=== PATIENT | male | born 1960 | race Two or more races ===

== ENCOUNTER 2022-08-16 06:14 | Day surgery (SDC) | payer OTHER ==
[~2022-08-16] VITALS: Ht 172.7 cm; Wt 73.5 kg
[~2022-08-16 06:14] MED LIST: CHILDREN'S ASPI81 MG PO; DEXILANT60 MG PO; ELIQUIS5 MG PO; GRALISE600 MG PO; KEPPRA XR750 MG PO; LASIX20 MG PO; NAMENDA10 MG PO; SYMTUZA 800-151 EACH PO; ZESTRIL10 M1 PO
[2022-08-16] MEDS ORDERED: RECTICARE30 GM TOP (09:46)
[2022-08-16] MEDS ORDERED: PERCOCET 5-3251 EACH PO (09:46)
== END 2022-08-16 16:30 | disposition home or self-care (01) ==
LOC: CIR.AMB 06:14
PROVIDERS: ATTEND Surgery
DX: K62.82 Dysplasia of anus (principal); K64.8 Other hemorrhoids; K59.00 Constipation, unspecified; I10 Essential (primary) hypertension; Z20.822 Contact with and (suspected) exposure to COVID-19; F17.210 Nicotine dependence, cigarettes, uncomplicated